=== PATIENT | female | born 1945 | race Caucasian/White ===

== ENCOUNTER 2016-12-18 16:02 | Emergency (ER) | payer MEDICARE, BC ==
[2016-12-18] MEDS ORDERED: KETOROLAC 60 MG/2 ML VIAL IM ONE (17:00)
== END 2016-12-18 18:16 | disposition home or self-care (01) ==
LOC: FASTR 16:02
DX: S32.048A Other fracture of fourth lumbar vertebra, initial encounter for closed fracture (principal); S39.012A Strain of muscle, fascia and tendon of lower back, initial encounter; W01.0XXA Fall on same level from slipping, tripping and stumbling without subsequent striking against object, initial encounter; Y92.019 Unspecified place in single-family (private) house as the place of occurrence of the external cause; S30.0XXA Contusion of lower back and pelvis, initial encounter
CPT/HCPCS: 72100; 96372